=== PATIENT | male | born 1950 | race Two or more races ===

== ENCOUNTER 2018-05-19 13:06 | Emergency (ER) | payer BC, MEDICAID ==
[~2018-05-19] VITALS: Ht 165.1 cm; Wt 68.9 kg
[2018-05-19 13:10] VITALS: BP 181/110; Ht 165.1 cm; Wt 68.9 kg
== END 2018-05-19 14:07 | disposition home or self-care (01) ==
LOC: ED 13:06
DX: Z76.0 Encounter for issue of repeat prescription (principal); F11.23 Opioid dependence with withdrawal; F17.210 Nicotine dependence, cigarettes, uncomplicated; Z71.6 Tobacco abuse counseling
CPT/HCPCS: 99406